=== PATIENT | male | born 1990 | race Caucasian/White ===

== ENCOUNTER 2016-10-17 06:43 | Emergency (ER) | payer SELFPAY ==
[2016-10-17] MEDS ORDERED: Ondansetron INJ* 2 MG/ML VIAL IV ONE (07:37)
[2016-10-17] MEDS ORDERED: Morphine INJ* 4 MG/ML 1 ML SYRINGE IV ONE ×2 (07:37→11:12)
[2016-10-17] MEDS ORDERED: Ketorolac INJ* 30 MG/ML 1 ML VIAL IV ONE (07:37)
[2016-10-17] MEDS ORDERED: NS 0.9% 1000 ML* 1,000 ML IV SCH (07:45)
--- NOTE | 2016-10-17 07:59 | RAD ---
HISTORY: Syncope COMPARISONS: June 27, 2006 VIEWS:1: Single frontal portable view of the chest at 7:45 AM FINDINGS: LINES AND TUBES: None. CARDIOMEDIASTINAL SILHOUETTE: The cardiomediastinal silhouette is normal for portable technique. PLEURA: The costophrenic angles are sharp. No pleural abnormalities are noted. LUNG PARENCHYMA: The lungs are clear. ABDOMEN: The upper abdomen is clear. There is no subphrenic gas. BONES AND SOFT TISSUES: No bone or soft tissue abnormalities are noted. IMPRESSION: NO ACTIVE CARDIOPULMONARY DISEASE.
[2016-10-17 08:00] LABS: Urine Bilirubin Negative (Negative); Urine Glucose Negative (Negative); Urine Nitrite Negative (Negative)
[2016-10-17 08:22] LABS: Hematocrit 44 % (42-52); Hemoglobin 14.9 g/dl (14.0-18.0); Mean Corpuscular HGB Conc 34 g/dl (31-36); Mean Corpuscular Hemoglobin 35 pg (27-31); Mean Corpuscular Volume 101 fL (80-94); Mean Platelet Volume 9 um3 (7.4-10.4); Red Blood Count 4.32 10^6/ul (4.0-5.4); Red Cell Distribution Width 14 % (10.5-15); White Blood Count 8.9 10^3/ul (3.5-10.8)
[2016-10-17 08:38] LABS: ALT 15 U/L (7-52); AST 17 U/L (13-39); Albumin 4.2 g/dL (3.2-5.2); Alkaline Phosphatase 63 U/L (34-104); Anion Gap 5 mmol/L (2-11); BUN/Creatinine Ratio 19.4 (8-20); Blood Urea Nitrogen 14 mg/dL (6-24); C Reactive Protein < 1.00 mg/L (< 5.00); CO2 Carbon Dioxide 27 mmol/L (22-32); Calcium 8.9 mg/dL (8.6-10.3); Chloride 106 mmol/L (101-111); Creatine Kinase 107 U/L (10-223); EGFR African American 167.2 (>60); Globulin 2.2 g/dL (2-4); Glucose 108 mg/dL (70-100); Lipase 25 U/L (11.0-82.0); Potassium 4.2 mmol/L (3.5-5.0); Sodium 138 mmol/L (133-145); Total Protein 6.4 g/dL (6.4-8.9)
[2016-10-17 09:10] LABS: TSH (Thyroid Stimulating Horm) 2.42 mcIU/mL (0.34-5.60)
--- NOTE | 2016-10-17 10:37 | RAD ---
HISTORY: MRI clearance. COMPARISON: None. FINDINGS: Frontal and lateral views of the orbits. There is no radiopaque foreign body attributable to the orbits. The orbital rims are intact. The sinuses are clear. The zygomatic arches are normal. IMPRESSION: No radiopaque foreign body attributable to the orbits.
[2016-10-17 10:48] VITALS: BP 124/76
--- NOTE | 2016-10-17 11:21 | RAD ---
HISTORY: Low back pain, right leg weakness COMPARISONS: None TECHNIQUE: The following sequences were obtained of the lumbar spine: Sagittal and axial T1- and T2-weighted images, coronal T2-weighted images, and sagittal STIR images. FINDINGS: There is transitional last lumbar type vertebral body which will be labeled S1 for the purposes of counting. SPINAL CORD, CONUS, AND CAUDA EQUINA: The visualized spinal cord, conus, and cauda equina are normal in caliber, position, and signal intensity. ALIGNMENT: The alignment is normal. VERTEBRAL BODIES: The bones are normal in signal intensity. There is partial obliteration of the S1 vertebral body JOINTS: Unremarkable MUSCULATURE: Unremarkable INTERVERTEBRAL DISCS: There is loss of intervertebral disc height and T2 signal at L5-S1 AXIAL IMAGES: L3-L4: There is no disc herniation, spinal stenosis, or neuroforaminal narrowing. L4-L5: There is no disc herniation, spinal stenosis, or neuroforaminal narrowing. L5-S1: There is a right lateral recess inferior disc extrusion measuring 1.1 cm in depth and 1.7 cm in the CC dimension. This abuts and displaces the descending nerve root on the right. There is no significant neural foraminal narrowing or central canal stenosis SOFT TISSUES: The visualized soft tissues of the abdomen are unremarkable. OTHER: None. IMPRESSION: 1. TRANSITIONAL ANATOMY, WITH THE COUNTING SCHEME DESCRIBED ABOVE. 2. RIGHT LATERAL RECESS DISC EXTRUSION AT L5-S1 WITH DISPLACEMENT OF THE DESCENDING NERVE ROOT
[2016-10-17] MEDS ORDERED: HYDROcodone/ACETAMIN 5-325 MG* 1 TAB PO ONE (13:03)
[2016-10-17] MEDS ORDERED: methylPREDNISolone 125 MG* 2 ML VIAL IV ONE (13:03)
--- NOTE | 2016-10-17 13:19 | ED ---
Cj Bassett Salem, scribed for Portillo Sheppard MD on 10/17/16 at 0729 . Back Pain - HPI Summary HPI Summary: Patient is a 26 y/o M who presents to the ED with right hip/lower back pain for the past few weeks. He states that he saw his chiropractor 7-8 times since onset (twice this week) and pain has moved since seeing the chiropractor. While it began in his mid-back and it is now localized over the right hip area and RLE. He reports numbness in right foot, and weakness, shaking, and pain in RLE. He also reports syncope because of severe pain this morning and yesterday morning. Pt denies changes in BM or urination, although he states that straining to make a BM aggravates pain and that pain sensation makes him feel like he always has to go. He reports no change in LLE. PMHx of chronic back pain. He states that the beginning of his symptoms is similar to previous episodes, but pain level is not. Pt has been taking Hydrocodone that he had prescribed for molar removal 1-2 months ago. - History of Current Complaint Chief Complaint: EDSyncope Stated Complaint: LOWER BACK PAIN/RIGHT LEG PAIN Time Seen by Provider: 10/17/16 07:28 Hx Obtained From: Patient Onset/Duration: Gradual Onset, Lasting Weeks, Still Present Onset/Duration: Started Weeks Ago, Atraumatic, Still Present Timing: Constant Back Pain Location: Is Discrete @ - Right hip. Severity Initially: Moderate Severity Currently: Moderate Pain Intensity: 8 Pain Scale Used: 0-10 Numeric Character: Sharp Aggravating Symptom(s): Movement, Lifting - Lifting leg. Alleviating Symptom(s): Rest Associated Signs And Symptoms: Positive: Weakness, Numbness - Allergies/Home Medications Allergies/Adverse Reactions: Allergies Allergy/AdvReac Type Severity Reaction Status Date / Time No Known Allergies Allergy Verified 01/16/15 17:49 PMH/Surg Hx/FS Hx/Imm Hx Musculoskeletal History: Reports: Hx Back Problems - Surgical History Surgery Procedure, Year, and Place: None. Infectious Disease History: Reports: Hx of Known/Suspected MRSA - SKIN INFECTION Denies: Traveled Outside the [place] in Last 30 Days - Family History Known Family History: Positive: Diabetes, Other - [place]. - Social History Alcohol Use: Occasionally Substance Use Type: Reports: None Smoking Status (MU): Current Every Day Smoker Type: Cigarettes Amount Used/How Often: 1/ PPD Review of Systems Positive: no symptoms reported, other Positive: Other - Back pain. Neurological: Other - Shaking of RLE. Positive: Weakness - RLE. , Numbness - Right foot. , Syncope All Other Systems Reviewed And Are Negative: Yes Physical Exam Triage Information Reviewed: Yes Vital Signs On Initial Exam: Initial Vitals Temp Pulse Resp BP Pulse Ox 98.3 F 90 18 156/84 100 10/17/16 06:46 10/17/16 06:46 10/17/16 06:46 10/17/16 06:46 10/17/16 06:46 Vital Signs Reviewed: Yes Appearance: Positive: Well-Appearing, Pain Distress - Mild. Skin: Positive: Warm, Skin Color Reflects Adequate Perfusion, Dry Head/Face: Positive: Normal Head/Face Inspection Eyes: Positive: EOMI, ANDREZ Neck: Positive: Supple, Nontender Respiratory/Lung Sounds: Positive: Clear to Auscultation, Breath Sounds Present Cardiovascular: Positive: RRR Abdomen Description: Positive: Nontender, Soft Musculoskeletal: Positive: Other - Lying on back. Tenderness to low back and to right of L4 and L5. Pain with ROM of bilat lower extremities, far worse on right. Reports weakness with hip flexion. Neurological: Positive: Normal, Sensory/Motor Intact, Alert, Oriented to Person Place, Time, Other - No sensation deficit. Psychiatric: Positive: Affect/Mood Appropriate - [place] Coma Scale Coma Scale Total: 15 Diagnostics - Vital Signs Vital Signs Temp Pulse Resp BP Pulse Ox 10/17/16 07:07 98.3 F 90 18 156/84 100 10/17/16 06:46 98.3 F 90 18 156/84 100 - Laboratory Lab Results: Lab Results 10/17/16 10/17/16 10/17/16 Range/Units 07:43 08:10 08:10 WBC 8.9 (3.5-10.8) 10^3/ul RBC 4.32 (4.0-5.4) 10^6/ul Hgb 14.9 (14.0-18.0) g/dl Hct 44 (42-52) % MCV 101 H (80-94) fL MCH 35 H (27-31) pg MCHC 34 (31-36) g/dl RDW 14 (10.5-15) % Plt Count 163 (150-450) 10^3/ul MPV 9 (7.4-10.4) um3 Neut % (Auto) 67.9 (38-83) % Lymph % (Auto) 21.2 L (25-47) % [place] % (Auto) 7.6 (1-9) % Eos % (Auto) 2.3 (0-6) % Baso % (Auto) 1.0 (0-2) % Absolute Neuts (auto) 6.1 (1.5-7.7) 10^3/ul Absolute Lymphs (auto) 1.9 (1.0-4.8) 10^3/ul Absolute Monos (auto) 0.7 (0-0.8) 10^3/ul Absolute Eos (auto) 0.2 (0-0.6) 10^3/ul Absolute Basos (auto) 0.1 (0-0.2) 10^3/ul Absolute Nucleated RBC 0.01 10^3/ul Nucleated RBC % 0.1 INR (Anticoag Therapy) 0.81 L (0.89-1.11) APTT 30.5 (26.0-36.3) seconds Sodium (133-145) mmol/L Potassium (3.5-5.0) mmol/L Chloride (101-111) mmol/L Carbon Dioxide (22-32) mmol/L Anion Gap (2-11) mmol/L BUN (6-24) mg/dL Creatinine (0.67-1.17) mg/dL Est GFR ( Amer) (>60) Est GFR (Non-Af Amer) (>60) BUN/Creatinine Ratio (8-20) Glucose (70-100) mg/dL Lactic Acid (0.5-2.0) mmol/L Calcium (8.6-10.3) mg/dL Magnesium (1.9-2.7) mg/dL Total Bilirubin (0.2-1.0) mg/dL AST (13-39) U/L ALT (7-52) U/L Alkaline Phosphatase (34-104) U/L Total Creatine Kinase (10-223) U/L Troponin I (<0.04) ng/mL C-Reactive Protein (< 5.00) mg/L Total Protein (6.4-8.9) g/dL Albumin (3.2-5.2) g/dL Globulin (2-4) g/dL Albumin/Globulin Ratio (1-3) Lipase (11.0-82.0) U/L TSH (0.34-5.60) mcIU/mL Urine Color Yellow Urine Appearance Cloudy Urine pH 7.0 (5-9) Ur Specific [place] 1.011 (1.010-1.030) Urine Protein Negative (Negative) Urine Ketones Negative (Negative) Urine Blood Negative (Negative) Urine Nitrate Negative (Negative) Urine Bilirubin Negative (Negative) Urine Urobilinogen Negative (Negative) Ur Leukocyte Esterase Negative (Negative) Urine Glucose Negative (Negative) 10/17/16 10/17/16 Range/Units 08:10 08:10 WBC (3.5-10.8) 10^3/ul RBC (4.0-5.4) 10^6/ul Hgb (14.0-18.0) g/dl Hct (42-52) % MCV (80-94) fL MCH (27-31) pg MCHC (31-36) g/dl RDW (10.5-15) % Plt Count (150-450) 10^3/ul MPV (7.4-10.4) um3 Neut % (Auto) (38-83) % Lymph % (Auto) (25-47) % [place] % (Auto) (1-9) % Eos % (Auto) (0-6) % Baso % (Auto) (0-2) % Absolute Neuts (auto) (1.5-7.7) 10^3/ul Absolute Lymphs (auto) (1.0-4.8) 10^3/ul Absolute Monos (auto) (0-0.8) 10^3/ul Absolute Eos (auto) (0-0.6) 10^3/ul Absolute Basos (auto) (0-0.2) 10^3/ul Absolute Nucleated RBC 10^3/ul Nucleated RBC % INR (Anticoag Therapy) (0.89-1.11) APTT (26.0-36.3) seconds Sodium 138 (133-145) mmol/L Potassium 4.2 (3.5-5.0) mmol/L Chloride 106 (101-111) mmol/L Carbon Dioxide 27 (22-32) mmol/L Anion Gap 5 (2-11) mmol/L BUN 14 (6-24) mg/dL Creatinine 0.72 (0.67-1.17) mg/dL Est GFR ( Amer) 167.2 (>60) Est GFR (Non-Af Amer) 130.0 (>60) BUN/Creatinine Ratio 19.4 (8-20) Glucose 108 H (70-100) mg/dL Lactic Acid 0.8 (0.5-2.0) mmol/L Calcium 8.9 (8.6-10.3) mg/dL Magnesium 2.0 (1.9-2.7) mg/dL Total Bilirubin 0.30 (0.2-1.0) mg/dL AST 17 (13-39) U/L ALT 15 (7-52) U/L Alkaline Phosphatase 63 (34-104) U/L Total Creatine Kinase 107 (10-223) U/L Troponin I 0.00 (<0.04) ng/mL C-Reactive Protein < 1.00 (< 5.00) mg/L Total Protein 6.4 (6.4-8.9) g/dL Albumin 4.2 (3.2-5.2) g/dL Globulin 2.2 (2-4) g/dL Albumin/Globulin Ratio 1.9 (1-3) Lipase 25 (11.0-82.0) U/L TSH 2.42 (0.34-5.60) mcIU/mL Urine Color Urine Appearance Urine pH (5-9) Ur Specific [place] (1.010-1.030) Urine Protein (Negative) Urine Ketones (Negative) Urine Blood (Negative) Urine Nitrate (Negative) Urine Bilirubin (Negative) Urine Urobilinogen (Negative) Ur Leukocyte Esterase (Negative) Urine Glucose (Negative) Result Diagrams: 10/17/16 08:10 10/17/16 08:10 Diagnostic Studies Comment: Trop: 0.00 Lab Statement: Any lab studies that have been ordered have been reviewed, and results considered in the medical decision making process. - Radiology CXR Radiology Interpretation Completed By: Radiologist - IMPRESSION: NO ACTIVE CARDIOPULMONARY DISEASE. ORBIT XR Radiology Interpretation Completed By: Radiologist - IMPRESSION: No radiopaque foreign body attributable to the orbits. - EKG 0654 EKG Interpretation: NSR @ 90 bpm. Early repolarization. No ectopy. - Additional Comments Diagnostic Additional Comments: MRI Lumbar spine: IMPRESSION: 1. TRANSITIONAL ANATOMY, WITH THE COUNTING SCHEME DESCRIBED ABOVE. 2. RIGHT LATERAL RECESS DISC EXTRUSION AT L5-S1 WITH DISPLACEMENT OF THE DESCENDING NERVE ROOT Re-Evaluation - Re-Evaluation First Eval Re-Evaluation Time: 11:51 Comment: Reviewed labs and imaging with pt. Second Eval Re-Evaluation Time: 12:58 Comment: Informed pt of consult with Dr. Johnson. Back Pain Course/Dx - Course Course Of Treatment: NO CRITICAL CARE TIME. DISCUSSED RESULTS WITH PATIENT/ AND DR JOHNSON, NEUROSURGERY. DR JOHNSON RECOMMENDED A MEDROL DOSE JAMEY/ PAIN MEDS AND OUT PATIENT FOLLOW UP. DISCHARGE HOME STABLE. - Diagnoses Provider Diagnoses: Lumbar disc herniation with radiculopathy, Syncope - Provider Notifications Discussed Care Of Patient With: Oscar Johnson Time Discussed With Above Provider: 12:43 - Discussed case. Recommended steroids and that pt follow up with him. Discharge - Discharge Plan Condition: Stable Disposition: HOME Prescriptions: Cyclobenzaprine TAB* [Flexeril 10 MG TAB*] 10 mg PO TID PRN #15 tab PRN Reason: Pain HYDROcodone/ACETAMIN 5-325 MG* [[place] 5-325 TAB*] 1 tab PO Q4H PRN #30 tab MDD 6 PRN Reason: Pain Methylprednisolone [Medrol Dosepak 4 MG*] 4 mg PO .SEE JAMEY INSTRUCTION #1 jamey Patient Education Materials: Lumbar Disc Herniation (ED), Syncope (ED), Lumbar Radiculopathy (ED) Referrals: Oscar Johnson MD [Medical Doctor] - No Primary Care Phys,NOPCP [Primary Care Provider] - Additional Instructions: FOLLOW UP WITH YOUR PRIMARY CARE DOCTOR AND NEUROSURGERY, DR JOHNSON.. RETURN TO THE EMERGENCY DEPARTMENT FOR ANY WORSENING OF YOUR CONDITION OR QUESTIONS OR CONCERNS. The documentation as recorded by the Cj hinson Salem accurately reflects the service I personally performed and the decisions made by me, Portillo Sheppard MD.
== END 2016-10-17 13:28 | disposition home or self-care (01) ==
LOC: ED 06:43
DX: M54.16 Radiculopathy, lumbar region (principal); R55 Syncope and collapse; M54.5 Low back pain; R53.1 Weakness; F17.210 Nicotine dependence, cigarettes, uncomplicated
CPT/HCPCS: 36415; 70030; 71010; 72148; 80053; 81003; 82550; 83605; 83690; 83735; 84443; 84484; 85025; 85610; 85730; 86140; 93005; 96374; 96375; 99283; J1885; J2270; J2405; J2930

== ENCOUNTER 2016-11-12 06:06 | Observation (INO) | payer OTHER ==
[~2016-11-12 06:06] MED LIST: Buffered Lidocaine 0.9% SYRIN* 5 ML/SYR SYRINGE INTRADERM ONE; Buffered Lidocaine 0.9% SYRIN* 5 ML/SYR SYRINGE ONE; Famotidine IV* 10 MG/ML 2 ML (20 mg) IV ONE; Famotidine IV* 10 MG/ML 2 ML (20 mg) ONE; Morphine INJ* 2 MG/ML 1 ML CARPUJECT IV PRN; PROCHLORPERAZINE INJ 5 MG/ML 2 ML VIAL IV PRN; Scopolamine 1.5 mg* PATCH TRANSDERM PRN; ceFAZolin 2 GM PREMIX (*) 2 GM/50 ML BAG IVPB ONE; oxyCODONE/Acetamin 5/325 MG* TAB PO PRN
[2016-11-12] MEDS ORDERED: Bacitracin IV* 50,000 UNITS INJ ONE (07:19)
[2016-11-12] MEDS ORDERED: Thrombin 5,000 UNITS* 1 APPLIC KIT - topical use - TOPICAL ONE (07:19)
[2016-11-12] MEDS ORDERED: Lidocaine 1.5% EPI 1:200,000* 30 ML SDV ONE (07:23)
[2016-11-12] MEDS ORDERED: Atracurium* 10 MG/ML 10 ML VIAL ONE (07:31)
[2016-11-12] MEDS ORDERED: fentaNYL* 50 MCG/ML 5 ML VIAL (250 MCG VIAL) ONE (07:31)
[2016-11-12] MEDS ORDERED: Midazolam* 1 MG/ML 5 ML VIAL (5 MG) ONE (07:32)
[2016-11-12] MEDS ORDERED: KETAMINE HCL* 50 MG/ML 10 ML VIAL ONE (07:32)
[2016-11-12] MEDS ORDERED: PROCHLORPERAZINE INJ 5 MG/ML 2 ML VIAL ONE (08:02)
[2016-11-12] MEDS ORDERED: Lidocaine 2% PF * 5 ML VIAL ONE (08:02)
[2016-11-12] MEDS ORDERED: Neostigmine Methylsulfate* 2 MG/2 ML SYRINGE ONE (08:02)
[2016-11-12] MEDS ORDERED: Propofol* 10 MG/ML 20 ML BTL IV PUSH ONE (08:02)
[2016-11-12] MEDS ORDERED: Ondansetron INJ* 2 MG/ML VIAL ONE (08:02)
[2016-11-12] MEDS ORDERED: Dexamethasone IV* 4 MG/ML 1 ML (4 MG) ONE (08:02)
[2016-11-12] MEDS ORDERED: Glycopyrrolate IV* 0.2 MG/ML 1 ML VIAL ONE (08:02)
[2016-11-12] MEDS ORDERED: Morphine INJ* 10 MG/ML 1 ML CARPUJECT ONE (08:31)
[2016-11-12] MEDS ORDERED: HYDROcodone/ACETAMIN 5-325 MG* 1 TAB PO PRN (09:07)
[2016-11-12] MEDS ORDERED: Ondansetron INJ* 2 MG/ML VIAL IV PRN (09:07)
[2016-11-12] MEDS ORDERED: Acetaminophen TAB* 325 MG PO PRN (09:07)
[2016-11-12] MEDS ORDERED: Mouth Piece, Nicotine* 1 EACH CARTRIDGE INH PRN (09:13)
[2016-11-12] MEDS ORDERED: Nicotine Inhaler* 10 MG AMP INH PRN (09:13)
[2016-11-12] MEDS: fentaNYL* 50 MCG/ML 2 ML VIAL (100 MCG VIAL) IV PRN ×2 (09:44→09:47)
[2016-11-12] MEDS ORDERED: fentaNYL* 50 MCG/ML 2 ML VIAL (100 MCG VIAL) ONE (09:44)
--- NOTE | 2016-11-12 10:27 | RAD ---
Indication: Lumbar discectomy at L5-S1 Single lateral view of the lumbar spine is reviewed. The L5-S1 disc space is localized for discectomy. IMPRESSION: Localization of the L5-S1 disc interspace.
[2016-11-12] MEDS ORDERED: HYDROcodone/ACETAMIN 5-325 MG* 1 TAB ONE (10:28)
[2016-11-12] MEDS ORDERED: Nicotine Inhaler* 10 MG AMP ONE (10:28)
[2016-11-12] MEDS ORDERED: Nicotine PATCH 21 MG/24 HR* PATCH ONE (10:28)
[2016-11-12] MEDS ORDERED: Mouth Piece, Nicotine* 1 EACH CARTRIDGE ONE (10:28)
[2016-11-12] MEDS ORDERED: Nicotine PATCH 21 MG/24 HR* PATCH TRANSDERM SCH (11:00)
[2016-11-12 12:24] VITALS: BP 123/71
--- NOTE | 2016-11-12 16:01 | PN ---
Progress Note - Progress Note Date of Service: 11/12/16 SOAP: Subjective: [S/p lumbar discectomy L5-S1 right, POD #0. RLE pain resolved. Complains of incisional low back pain, controlled with PO pain medications. Ambulating independently. No new numbness, tingling or weakness in bilateral lower extremities. No headache.] Objective: [ Vital Signs: Temp Pulse Resp BP Pulse Ox 98.2 F 74 18 123/71 98 11/12/16 11:28 11/12/16 11:28 11/12/16 14:19 11/12/16 11:28 11/12/16 11:28 General: Alert and oriented. No distress. Neuro: Motor and sensory intact. Extremities: Full ROM. ] Assessment: [Satisfactory post-op course. Pain well controlled. He would like to go home today.] Plan: [1. Discharge home today. 2. Discharge instructions discussed with the patient. ]
[2016-11-13] MEDS ORDERED: Nicotine Patch Removal NOTE PATCH OFF SCH (21:00)
[2016-11-15] MEDS ORDERED: Scopolomine PATCH Remove* 1 NOTE MISC PATCH OFF ONE (05:52)
--- NOTE | 2016-11-29 13:20 | DS ---
DATE OF ADMISSION: 11/12/2016. DATE OF DISCHARGE: 11/12/2016. ATTENDING PHYSICIAN: Dr. Oscar Donaldson * (dictated by SUZANNE Fletcher). DISCHARGE DIAGNOSIS: Herniated nucleus pulposus L5-S1 on the right. SPECIAL PROCEDURE: Lumbar diskectomy L5-S1 on the right. HOSPITAL COURSE: This 26-year-old male was seen in the office with a right sided lumbar radiculopathy consistent with MRI finding of a herniated disk at L5 -S1 on the right. He had failed to improve with conservative treatment and admitted at this time for elective surgical therapy. On the date of admission, he was taken to surgery where under general anesthesia a lumbar diskectomy at L5 -S1 on the right operation was carried out. Postoperatively, his preoperative right lower extremity pain has improved. He is ambulating independently and pain is well-controlled with oral pain medications. He is eating, drinking and voiding without difficulty. He was discharged home to the care of his family on the same day of surgery. DISCHARGE INSTRUCTIONS: Wound care and activity level were discussed with the patient. He will be seen in the office in approximately seven to ten days for follow-up and staple removal. DISCHARGE MEDICATIONS: None. SUZANNE FLETCHER [id number]/[facility] #: [id number] MTDD
--- NOTE | 2016-12-20 05:19 | OP ---
DATE OF OPERATION: 11/12/16 - ROOM #334 DATE OF : 86 SURGEON: Oscar Donaldson MD AUTOMATED WEAVER: SUZANNE Dudley ANESTHESIOLOGIST: José Miguel Aguirre MD ANESTHESIA: General. PRE-OP DIAGNOSIS: Herniated nucleus pulposus, L5-S1 on the right. POST-OP DIAGNOSIS: Herniated nucleus pulposus, L5-S1 on the right. OPERATIVE PROCEDURE: Lumbar discectomy, L5-S1 on the right with microdissection. DESCRIPTION OF PROCEDURE: After satisfactory general anesthesia was obtained, the patient was placed on the operating room table in a prone position with the chest supported on the Alex frame and the back slightly flexed. The lumbar region was then clipped, prepped and draped in a sterile manner for lumbar laminectomy. A skin incision outlined from L5 to the sacrum. This incision was infiltrated with 1% Xylocaine with epinephrine after which it was turned down sharply to the level of the lumbar fascia. The fascia was divided along the spinous processes of L5 and S1, and the paraspinal musculature was stripped away from these posterior elements using the periosteal elevator and monopolar cautery. An intraoperative x-ray was obtained verifying proper interspace localization, after which a partial leonard-laminectomy was carried out at this level by removing the inferior aspect of the L5 lamina and medial aspect of the facet complex utilizing combination of the Midas Edward drill and Kerrison rongeurs. This was carried superiorly until attachment of the ligamentum flavum was taken down. Ligamentum flavum was then removed and generous foraminotomy done over the S1 nerve root. At this point of the procedure, the operating microscope was brought into the field and the remainder of the procedure was done under microscopic visualization. Utilizing microdissection, epidural venous structures were coagulated and divided. Projecting beneath the S1 nerve root was noted to be a herniation of disk material. An opening was made into the posterior longitudinal ligament and multiple fragments of disc material were removed from beneath the nerve root. The disk space itself was then cleared of any loose disc material using pituitary forceps and curettes. At the conclusion of the decompression, the S1 nerve root was noted to be free in its course. After assuring adequate hemostasis, the wound was thoroughly irrigated, after which a piece of Gelfoam was placed over the laminectomy defect. The fascia was then reapproximated with 0 Vicryl suture. The subcutaneous tissue was closed with 3-0 Vicryl suture and the skin closed with skin clips. The estimated blood loss was less than 50 cc and the final sponge, padding, and needle counts were correct. The patient was taken to the recovery room, extubated, and in stable condition. [id number]/[facility] #: [id number] MTDD
== END 2016-11-12 16:25 | disposition home or self-care (01) ==
LOC: OR 06:06 → SSU 09:07
PROVIDERS: ADMIT Neurological Surgery; ATTEND Neurological Surgery
PROC: 00NY0ZZ Release Lumbar Spinal Cord, Open Approach (ICD-10-PCS; 2016-11-12)
PROC: 0SB20ZZ Excision of Lumbar Vertebral Disc, Open Approach (ICD-10-PCS; principal; 2016-11-12 07:45)
DX: M51.16 Intervertebral disc disorders with radiculopathy, lumbar region (principal); M51.26 Other intervertebral disc displacement, lumbar region; F17.210 Nicotine dependence, cigarettes, uncomplicated
CPT/HCPCS: 72100; 88304; 96374; A9270-GY; G0378; J0690; J0780; J1100; J2250; J2270; J2405; J2704; J3010

== ENCOUNTER 2017-05-04 11:23 | Emergency (ER) | payer OTHER ==
--- NOTE | 2017-05-04 12:10 | ED ---
Back Pain - HPI Summary HPI Summary: Patient presents to the ED with CC of low back pain which is non-radiating but causes numbness into the L foot. Dr. Donaldson performed L5-S1 discectomy in October (7 months ago) and patient has been having persistent back pain since that time, although the pain is intermittent and not everyday. He has had mild relief of symptoms since the surgery, but since he continues to have pain - concerned with new or worsening injury. He has been taking Zaheer back and hot showers without relief of pain. Denies any new or re-injury. Denies fevers, sweats or chills. Denies B/B dysfunction. - History of Current Complaint Chief Complaint: EDBackInjuryPain Stated Complaint: BACK PAIN Time Seen by Provider: 05/04/17 11:33 Hx Obtained From: Patient Onset/Duration: Sudden Onset Onset/Duration: Started Hours Ago Timing: Constant Back Pain Location: Is Discrete @ Severity Initially: Moderate Severity Currently: Moderate Pain Intensity: 5 Pain Scale Used: 0-10 Numeric Character: Aching Alleviating Symptom(s): Rest Associated Signs And Symptoms: Positive: Numbness, Tingling - Risk Factors AAA Risk Factors: Negative TAD Risk Factors: Negative Cauda Equina Risk Factors: Negative Epidural Abscess Risk Factors: Negative - Allergies/Home Medications Allergies/Adverse Reactions: Allergies Allergy/AdvReac Type Severity Reaction Status Date / Time No Known Allergies Allergy Verified 05/04/17 11:30 PMH/Surg Hx/FS Hx/Imm Hx Previously Healthy: Yes Cardiovascular History: Denies: Hx Pacemaker/ICD Musculoskeletal History: Reports: Hx Back Problems Sensory History: Denies: Hx Contacts or Glasses, Hx Hearing Aid Opthamlomology History: Denies: Hx Contacts or Glasses Psychiatric History: Denies: Hx Panic Disorder - Surgical History Surgery Procedure, Year, and Place: wisdom teeth June 2016 Hx Anesthesia Reactions: No - Immunization History Hx Pertussis Vaccination: No Immunizations Up to Date: Unable to Obtain/Confirm Infectious Disease History: No Infectious Disease History: Reports: Hx of Known/Suspected MRSA - SKIN INFECTION Denies: Traveled Outside the [place] in Last 30 Days - Family History Known Family History: Positive: Diabetes, Other - [place]. - Social History Occupation: Employed Full-time Lives: With Family Alcohol Use: None Alcohol Amount: 2-3 beer a day Hx Substance Use: No Substance Use Type: Reports: None Substance Use Comment - Amount & Last Used: hydrocodone, currently for back pain Hx Tobacco Use: Yes Smoking Status (MU): Light Every Day Tobacco Smoker Type: Cigarettes Amount Used/How Often: 6-10 cigg/day for past 7 years Review of Systems Constitutional: Negative Negative: Fever, Chills, Fatigue Eyes: Negative ENT: Negative Respiratory: Negative Genitourinary: Negative Positive: no symptoms reported, see HPI Positive: Arthralgia Skin: Negative Positive: Paresthesia, Numbness Psychological: Normal All Other Systems Reviewed And Are Negative: Yes Physical Exam Triage Information Reviewed: Yes Vital Signs On Initial Exam: Initial Vitals Temp Pulse Resp BP Pulse Ox 98.7 F 85 16 159/86 100 05/04/17 11:30 05/04/17 11:30 05/04/17 11:30 05/04/17 11:30 05/04/17 11:30 Vital Signs Reviewed: Yes Appearance: Positive: Well-Appearing, No Pain Distress, Well-Nourished Skin: Positive: Warm, Skin Color Reflects Adequate Perfusion Head/Face: Positive: Normal Head/Face Inspection Eyes: Positive: EOMI, ANDREZ, Conjunctiva Clear Neck: Positive: Supple, No Lymphadenopathy Respiratory/Lung Sounds: Positive: Clear to Auscultation, Breath Sounds Present Cardiovascular: Positive: RRR, Pulses are Symmetrical in both Upper and Lower Extremities Musculoskeletal: Positive: Normal, Strength/ROM Intact Neurological: Positive: Sensory/Motor Intact, Alert, Oriented to Person Place, Time, Speech Normal Psychiatric: Positive: Normal, Affect/Mood Appropriate AVPU Assessment: Alert - [place] Coma Scale Coma Scale Total: 15 Diagnostics - Vital Signs Vital Signs Temp Pulse Resp BP Pulse Ox 05/04/17 11:30 98.7 F 85 16 159/86 100 - Laboratory Lab Statement: Any lab studies that have been ordered have been reviewed, and results considered in the medical decision making process. Back Pain Course/Dx - Course Course Of Treatment: IMPRESSION: Postoperative changes. No fracture is identified. Patient is give pain control and baclofen. He will follow up with [facility]. Denies B/B dysfunction or other numbness or tingling aside from baseline. Contineus to have numbness in L foot - but this has been present and evlaluated since the surgery. - Diagnoses Provider Diagnoses: Chronic back pain greater than 3 months duration Discharge - Discharge Plan Condition: Stable Disposition: HOME Prescriptions: Baclofen TAB* [Lioresal TAB*] 10 mg PO TID #15 tab Hydrocodone-Acetaminophen [Hydrocodone/Acetaminophen 5-325 mg] 1 tab PO Q6H PRN #15 tab MDD 4 PRN Reason: Pain Patient Education Materials: Lumbar Radiculopathy (ED) Referrals: Oscar Donaldson MD [Medical Doctor] - No Primary Care Phys,NOPCP [Primary Care Provider] - Additional Instructions: Dx. Back pain Hydrocodone: Take up to four times daily for pain Flexeril: This medication is a muscle relaxant and can help relieve muscle spasms, muscle strain, or pain sensations. Flexeril can cause side effects that may impair your thinking or reactions. Be careful if you drive or do anything that requires you to be awake and alert. Avoid drinking alcohol, which can increase some of the side effects of Flexeril. Ibuprofen 600mg three times daily with meals for discomfort. Return to ED if symptoms worsen or fail to improve, notice worsening swelling, warmth or redness around the joint, develop fever, or pain is uncontrolled with OTC medications. Moist heat to the area for comfort. Warm showers or baths may improve symptoms. It is important to remain mobile as tolerated to prevent stiffening of the joints and delay healing. Follow up with your PCP. If symptoms remain for > 6 weeks, please seek special medical attention from an orthopedic physician.
--- NOTE | 2017-05-04 13:54 | RAD ---
Indication: Back pain. CT of the lumbar spine was obtained in the axial plane. Sagittal and coronal reconstructed images were obtained. The vertebral bodies appear normal in height. Normal bone marrow signal is noted. At L5-S1 there is degenerative disc disease noted. Broad-based protrusion is noted. No central or foraminal stenosis is identified. At L4-L5 no disc protrusion is noted. No central or foraminal stenosis is noted. L3-L4 no disc protrusion is noted. No central or foraminal stenosis is noted. At L1-L2 and T12-L1 disc space is normal. Minimal sclerosis is noted in the inferior endplate of L3. Pedicles and intervertebral foramen appear patent. Laminotomy defect is noted in the right L5 lamina. IMPRESSION: Postoperative changes. No fracture is identified.
[2017-05-04 14:54] VITALS: BP 137/79
== END 2017-05-04 14:52 | disposition home or self-care (01) ==
LOC: ED 11:23
DX: G89.29 Other chronic pain (principal); M51.26 Other intervertebral disc displacement, lumbar region; M51.36 Other intervertebral disc degeneration, lumbar region; F17.210 Nicotine dependence, cigarettes, uncomplicated
CPT/HCPCS: 72131; 99282

== ENCOUNTER 2017-10-04 13:01 | Emergency (ER) | payer OTHER ==
[2017-10-04] MEDS ORDERED: NS 0.9% 1000 ML* 1,000 ML IV ONE (13:22)
[2017-10-04] MEDS ORDERED: diPHENhydraMINE IV* 50 MG/ML 1 ml VIAL (BENADRYL) IV ONE (13:22)
[2017-10-04] MEDS ORDERED: Metoclopramide IV* 5 MG/ML 2 ML VIAL IV ONE (13:22)
[2017-10-04] MEDS ORDERED: Ketorolac INJ* 30 MG/ML 1 ML VIAL IV PUSH ONE (14:28)
[2017-10-04 14:33] LABS: ABS Basophils 0.1 10^3/ul (0-0.2); ABS Eosinophils 0.2 10^3/ul (0-0.6); ABS Monocytes 0.6 10^3/ul (0-0.8); ABS Neutrophils 5.3 10^3/ul (1.5-7.7); ABS Nucleated RBC 0 10^3/ul; Hematocrit 46 % (42-52); Hemoglobin 15.8 g/dl (14.0-18.0); Lymphocyte % 24.2 % (25-47); Mean Corpuscular HGB Conc 34 g/dl (31-36); Mean Corpuscular Hemoglobin 34 pg (27-31); Mean Corpuscular Volume 100 fL (80-94); Mean Platelet Volume 8.4 um3 (7.4-10.4); Nucleated Red Blood Cells % 0; Platelet Count 197 10^3/ul (150-450); Red Blood Count 4.61 10^6/ul (4.00-5.40); Red Cell Distribution Width 13 % (10.5-15); White Blood Count 8.1 10^3/ul (3.5-10.8)
[2017-10-04 14:43] LABS: INR 0.79 (0.77-1.02)
[2017-10-04 16:40] VITALS: BP 129/82
--- NOTE | 2017-10-04 18:25 | ED ---
Juan R Bassett Jade, scribed for Gagandeep Moore MD on 10/04/17 at 1428 . Headache - HPI Summary HPI Summary: Pt is a 27 y/o male who presents to the ED c/o headache. Pt had a CT myelogram yesterday for his herniated disc, and denies a headache before this procedure. The procedure took longer than normal, so there is potential for an issue with the procedure. He states the headache started last night, and is described as throbbing in the front and back of his head, and rated 8/10 in intensity. The headache is worse when he stands up, and is better when he lies down. Pt also complains of blurry vision and low-grade fever. He denies any difficulty swallowing, SOB, or N/V. Today he had some caffeine, but usually doesnt drink that much. Pt denies PMHx migraines, kidney issues, or blood clot issues. SHx smoking and drinking. - History Of Current Complaint Chief Complaint: EDHeadache Stated Complaint: HEADACHE Time Seen by Provider: 10/04/17 14:14 Hx Obtained From: Patient Onset/Duration: Gradual Onset, Started days ago - Last night Currently Pain Is: Severe - 8/10 Character: Throbbing Location of Headache: Other: - Front and back of head Aggravating Factor: Position Change - standing up Allevating Factors: Position Change - laying down - Allergies/Home Medications Allergies/Adverse Reactions: Allergies Allergy/AdvReac Type Severity Reaction Status Date / Time No Known Allergies Allergy Verified 10/04/17 13:19 PMH/Surg Hx/FS Hx/Imm Hx Cardiovascular History: Denies: Hx Pacemaker/ICD Musculoskeletal History: Reports: Hx Back Problems - Herniated disc Sensory History: Denies: Hx Contacts or Glasses, Hx Hearing Aid Opthamlomology History: Denies: Hx Contacts or Glasses Psychiatric History: Denies: Hx Panic Disorder - Surgical History Surgery Procedure, Year, and Place: wisdom teeth June 2016 Hx Anesthesia Reactions: No Infectious Disease History: Yes Infectious Disease History: Reports: Hx of Known/Suspected MRSA - SKIN INFECTION Denies: Traveled Outside the [place] in Last 30 Days - Family History Known Family History: Positive: Diabetes, Other - CA. NEGATIVE: blood clot issues, aneurysm - Social History Alcohol Use: Daily Alcohol Amount: 2-3 beer a day Hx Substance Use: No Substance Use Type: Reports: Prescribed Substance Use Comment - Amount & Last Used: hydrocodone, currently for back pain Hx Tobacco Use: Yes Smoking Status (MU): Light Every Day Tobacco Smoker Type: Cigarettes Amount Used/How Often: 6-10 cigg/day for past 7 years Review of Systems Positive: Fever - Low-grade Positive: Blurred Vision ENT: Negative - NEGATIVE: difficulty swallowing Negative: Shortness Of Breath Negative: Vomiting, Nausea Positive: Headache All Other Systems Reviewed And Are Negative: Yes Physical Exam - Summary Physical Exam Summary: Appearance: Well appearing, no pain distress Skin: warm, dry, reflects adequate perfusion Head/face: normal Eyes: EOMI, ANDREZ ENT: normal Neck: supple, non-tender Respiratory: CTA, breath sounds present Cardiovascular: RRR, pulses symmetrical Abdomen: non-tender, soft Bowel Sounds: present Musculoskeletal: normal, strength/ROM intact Neuro: normal, sensory motor intact, A&Ox3. Cranial nerves normal. Headache symptoms worsen when he stands up. Triage Information Reviewed: Yes Vital Signs On Initial Exam: Initial Vitals Temp Pulse Resp BP Pulse Ox 98.3 F 83 18 152/93 99 10/04/17 13:14 10/04/17 13:14 10/04/17 13:14 10/04/17 13:14 10/04/17 13:14 Vital Signs Reviewed: Yes Diagnostics - Vital Signs Vital Signs Temp Pulse Resp BP Pulse Ox 10/04/17 13:14 98.3 F 83 18 152/93 99 - Laboratory Lab Results: Lab Results 10/04/17 10/04/17 10/04/17 Range/Units 14:27 14:27 14:27 WBC 8.1 (3.5-10.8) 10^3/ul RBC 4.61 (4.00-5.40) 10^6/ul Hgb 15.8 (14.0-18.0) g/dl Hct 46 (42-52) % MCV 100 H (80-94) fL MCH 34 H (27-31) pg MCHC 34 (31-36) g/dl RDW 13 (10.5-15) % Plt Count 197 (150-450) 10^3/ul MPV 8.4 (7.4-10.4) um3 Neut % (Auto) 65.2 (38-83) % Lymph % (Auto) 24.2 L (25-47) % [place] % (Auto) 7.6 H (0-7) % Eos % (Auto) 2.0 (0-6) % Baso % (Auto) 1.0 (0-2) % Absolute Neuts (auto) 5.3 (1.5-7.7) 10^3/ul Absolute Lymphs (auto) 2.0 (1.0-4.8) 10^3/ul Absolute Monos (auto) 0.6 (0-0.8) 10^3/ul Absolute Eos (auto) 0.2 (0-0.6) 10^3/ul Absolute Basos (auto) 0.1 (0-0.2) 10^3/ul Absolute Nucleated RBC 0 10^3/ul Nucleated RBC % 0 INR (Anticoag Therapy) 0.79 (0.77-1.02) APTT 33.8 (26.0-36.3) seconds Sodium 138 (135-145) mmol/L Potassium 4.3 (3.5-5.0) mmol/L Chloride 106 (101-111) mmol/L Carbon Dioxide 25 (22-32) mmol/L Anion Gap 7 (2-11) mmol/L BUN 15 (6-24) mg/dL Creatinine 0.84 (0.67-1.17) mg/dL Est GFR ( Amer) 138.9 (>60) Est GFR (Non-Af Amer) 108.0 (>60) BUN/Creatinine Ratio 17.9 (8-20) Glucose 83 (70-100) mg/dL Calcium 9.4 (8.6-10.3) mg/dL Result Diagrams: 10/04/17 14:27 18 14:27 Lab Statement: Any lab studies that have been ordered have been reviewed, and results considered in the medical decision making process. Re-Evaluation - Re-Evaluation First Eval Re-Evaluation Time: 04:11 Change: Improved Comment: Patient is feeling much better and is now walking around. Ready for discharge. Headache Course/Dx - Course Course Of Treatment: Patient is one-day post lumbar puncture for myelogram. He is having positional headache consistent with spinal headache. Anesthesia was contacted and came to evaluate the patient. They do not feel a blood patch is warranted at this early stage. He was treated here with standard treatment for headache with near-complete relief. He understands he should return for blood patch if the positional nature to his headache continues. Promethazine prescribed for outpatient use. - Diagnoses Differential Diagnosis/HQI/PQRI: Other - Migraine headache, spinal headache, subarachnoid Provider Diagnoses: Lumbar puncture headache - Physician Notifications Discussed Care Of Patient With: Mahesh Gonzalez Time Discussed With Above Provider: 02:27 Instructed by Provider To: MD Will See In ED - Anesthesia will explain to pt why they are not doing a spinal tap Discharge - Sign-Out/Discharge Documenting (check all that apply): Discharge/Admit/Transfer - Discharge - Discharge Plan Condition: Good Disposition: HOME Prescriptions: Promethazine TAB* [Phenergan Tab*] 25 mg PO Q6H PRN #20 tab PRN Reason: headache/nausea Patient Education Materials: Acute Headache (ED), Epidural Blood Patch (DC) Referrals: No Primary Care Phys,NOPCP [Primary Care Provider] - Additional Instructions: Return to the ER if you're not better in 24 hours and have a headache that is positional in nature as discussed. Return with vomiting, severe headache, worse or new symptoms. Drink plenty of fluids, caffeine may help. Ibuprofen and Benadryl along with prescribed medication may help too. - Billing Disposition and Condition Condition: STABLE Disposition: Home The documentation as recorded by the Juan R ihnson Jade accurately reflects the service I personally performed and the decisions made by me, Gagandeep Moore MD.
== END 2017-10-04 16:39 | disposition home or self-care (01) ==
LOC: ED 13:01
DX: N20.0 Calculus of kidney (principal); R06.02 Shortness of breath; R10.9 Unspecified abdominal pain; M54.9 Dorsalgia, unspecified
CPT/HCPCS: 36415; 80048; 85025; 85610; 85730; 99283; J1200; J1885; J2765

== ENCOUNTER 2017-10-05 11:52 | Emergency (ER) | payer OTHER ==
[2017-10-05] MEDS ORDERED: NS 0.9% 1000 ML* 1,000 ML IV ONE (16:06)
[2017-10-05] MEDS ORDERED: diPHENhydraMINE IV* 50 MG/ML 1 ml VIAL (BENADRYL) IV ONE (16:41)
[2017-10-05] MEDS ORDERED: Ketorolac INJ* 30 MG/ML 1 ML VIAL IV PUSH ONE (16:41)
[2017-10-05] MEDS ORDERED: Metoclopramide IV* 5 MG/ML 2 ML VIAL IV ONE (16:41)
[2017-10-05 17:44] LABS: ABS Basophils 0.1 10^3/ul (0-0.2); ABS Eosinophils 0.1 10^3/ul (0-0.6); ABS Lymphocytes 1.5 10^3/ul (1.0-4.8); ABS Monocytes 0.5 10^3/ul (0-0.8); ABS Neutrophils 4.5 10^3/ul (1.5-7.7); ABS Nucleated RBC 0 10^3/ul; Eosinophil % 1.2 % (0-6); Hematocrit 44 % (42-52); Hemoglobin 15.2 g/dl (14.0-18.0); Lymphocyte % 22.8 % (25-47); Mean Corpuscular HGB Conc 34 g/dl (31-36); Mean Corpuscular Hemoglobin 34 pg (27-31); Mean Corpuscular Volume 100 fL (80-94); Mean Platelet Volume 8.4 um3 (7.4-10.4); Nucleated Red Blood Cells % 0; Platelet Count 190 10^3/ul (150-450); Red Blood Count 4.43 10^6/ul (4.00-5.40); Red Cell Distribution Width 13 % (10.5-15); White Blood Count 6.7 10^3/ul (3.5-10.8)
[2017-10-05] MEDS ORDERED: fentaNYL* 50 MCG/ML 2 ML VIAL (100 MCG VIAL) ONE (18:09)
[2017-10-05] MEDS ORDERED: oxyCODONE/Acetamin 5/325 MG* TAB PO PRN (18:27)
[2017-10-05] MEDS ORDERED: Ondansetron INJ* 2 MG/ML VIAL IV PRN (18:27)
[2017-10-05] MEDS ORDERED: Naloxone* 0.4 MG/ML 1 ML VIAL IV PRN (18:27)
[2017-10-05] MEDS ORDERED: HYDROcodone/ACETAMIN 5-325 MG* 1 TAB PO PRN (18:27)
[2017-10-05] MEDS ORDERED: fentaNYL* 50 MCG/ML 2 ML VIAL (100 MCG VIAL) IV PRN (18:27)
--- NOTE | 2017-10-05 18:50 | ED ---
Whitney Bassett Rebecca, scribed for José Miguel Porter MD on 10/05/17 at 1607 . Headache - HPI Summary HPI Summary: Pt is a 27 y/o M who presents to ED c/o ART s/p LP. Pt had an LP done at 1300 on Friday (2 days ago) at [facility] and upon standing up out of the car after returning home at 1800 his ART began. Pain has gradually worsened since onset, resolved yesterday after being seen at [facility], returning upon coming home after. At triage, pain was severe, ranked 9/10. Sx slightly alleviated by rest and laying down. Was seen by [facility] ED yesterday where he was given IV fluids, Toradol, Reglan, and Benadryl which resolved sx, with an Rx for Phenergan. Anesthesiology yesterday felt as though a blood patch was not warranted so early on. Does not typically experiences headaches and has tried caffeine without resolution. - History Of Current Complaint Chief Complaint: EDHeadache Stated Complaint: HEADACHE Time Seen by Provider: 10/05/17 15:57 Hx Obtained From: Patient Onset/Duration: Started days ago - 2 days ago, Still Present Currently Pain Is: Severe - 9/10 Character: Throbbing Aggravating Factor: Nothing Allevating Factors: Rest, Other (Noted In Comments) - Laying down Associated Signs And Symptoms: Negative - Allergies/Home Medications Allergies/Adverse Reactions: Allergies Allergy/AdvReac Type Severity Reaction Status Date / Time No Known Allergies Allergy Verified 10/05/17 12:04 PMH/Surg Hx/FS Hx/Imm Hx Cardiovascular History: Denies: Hx Pacemaker/ICD Musculoskeletal History: Reports: Hx Back Problems - Herniated disc Sensory History: Denies: Hx Contacts or Glasses, Hx Hearing Aid Opthamlomology History: Denies: Hx Contacts or Glasses Psychiatric History: Denies: Hx Panic Disorder - Surgical History Surgery Procedure, Year, and Place: wisdom teeth June 2016 Hx Anesthesia Reactions: No Infectious Disease History: No Infectious Disease History: Reports: Hx of Known/Suspected MRSA - SKIN INFECTION Denies: Traveled Outside the [place] in Last 30 Days - Family History Known Family History: Positive: Diabetes, Other - CA. NEGATIVE: blood clot issues, aneurysm - Social History Alcohol Use: Daily Alcohol Amount: 2-3 beer a day Hx Substance Use: No Substance Use Type: Reports: Prescribed Substance Use Comment - Amount & Last Used: hydrocodone, currently for back pain Hx Tobacco Use: Yes Smoking Status (MU): Light Every Day Tobacco Smoker Type: Cigarettes Amount Used/How Often: 6-10 cigg/day for past 7 years Review of Systems Negative: Fever Positive: Headache All Other Systems Reviewed And Are Negative: Yes Physical Exam - Summary Physical Exam Summary: Appearance: The patient is well-nourished in no acute distress and in no acute pain. Skin: The skin is warm and dry and skin color reflects adequate perfusion. HEENT: The head is normocephalic and atraumatic. The pupils are equal and reactive. The conjunctivae are clear and without drainage. Nares are patent and without drainage. Mouth reveals moist mucous membranes and the throat is without erythema and exudate. The external ears are intact. The ear canals are patent and without drainage. The tympanic membranes are intact. Neck: The neck is supple with full range of motion and non-tender. There are no carotid bruits. There is no neck vein distension. Respiratory: Chest is non-tender. Lungs are clear to auscultation and breath sounds are symmetrical and equal. Cardiovascular: Heart is regular rate and rhythm. There is no murmur or rub auscultated. There is no peripheral edema and pulses are symmetrical and equal. Abdomen: The abdomen is soft and non-tender. There are normal bowel sounds heard in all four quadrants and there is no organomegaly palpated. Musculoskeletal: There is no back tenderness noted. Extremities are non-tender with full range of motion. There is good capillary refill. There is no peripheral edema or calf tenderness elicited. Neurological: Patient is alert and oriented to person, place and time. The patient has symmetrical motor strength in all four extremities. Cranial nerves are grossly intact. Deep tendon reflexes are symmetrical and equal in all four extremities. Psychiatric: The patient has an appropriate affect and does not exhibit any anxiety or depression. Triage Information Reviewed: Yes Vital Signs On Initial Exam: Initial Vitals Temp Pulse Resp BP Pulse Ox 98.3 F 81 18 148/90 100 10/05/17 12:00 10/05/17 12:00 10/05/17 12:00 10/05/17 12:10/05/17 12:00 Vital Signs Reviewed: Yes Diagnostics - Vital Signs Vital Signs Temp Pulse Resp BP Pulse Ox 10/05/17 13:25 98.1 F 66 16 141/90 99 10/05/17 12:00 98.3 F 81 18 148/90 100 - Laboratory Lab Results: Lab Results 10/05/17 Range/Units 17:36 WBC 6.7 (3.5-10.8) 10^3/ul RBC 4.43 (4.00-5.40) 10^6/ul Hgb 15.2 (14.0-18.0) g/dl Hct 44 (42-52) % MCV 100 H (80-94) fL MCH 34 H (27-31) pg MCHC 34 (31-36) g/dl RDW 13 (10.5-15) % Plt Count 190 (150-450) 10^3/ul MPV 8.4 (7.4-10.4) um3 Neut % (Auto) 67.3 (38-83) % Lymph % (Auto) 22.8 L (25-47) % [place] % (Auto) 7.8 H (0-7) % Eos % (Auto) 1.2 (0-6) % Baso % (Auto) 0.9 (0-2) % Absolute Neuts (auto) 4.5 (1.5-7.7) 10^3/ul Absolute Lymphs (auto) 1.5 (1.0-4.8) 10^3/ul Absolute Monos (auto) 0.5 (0-0.8) 10^3/ul Absolute Eos (auto) 0.1 (0-0.6) 10^3/ul Absolute Basos (auto) 0.1 (0-0.2) 10^3/ul Absolute Nucleated RBC 0 10^3/ul Nucleated RBC % 0 Result Diagrams: 10/05/17 17:36 Lab Statement: Any lab studies that have been ordered have been reviewed, and results considered in the medical decision making process. Headache Course/Dx - Course Course Of Treatment: Mr. Bey presented with a good story for a post-LP headache. He had tried caffeine at home he had complete improvement yesterday with a migraine cocktail and fluids but the headache returned when he got home. The headache is worsened when he is upright and initially was only present when he was upright. Now it is present constantly but worsened when upright. Dr. Nicole was contacted to consider a blood patch after an IV had been established and he was given another migraine cocktail and IV fluids. Dr. Nicole came to the department and took him to outpatient surgery department to perform a blood patch. - Diagnoses Provider Diagnoses: Headache after spinal puncture - Physician Notifications Discussed Care Of Patient With: Melissa Nicole Time Discussed With Above Provider: 17:20 Instructed by Provider To: Other - Will do the blood patch in the OR. Discharge - Sign-Out/Discharge Documenting (check all that apply): Discharge/Admit/Transfer - Discharge Plan Condition: Stable Disposition: HOME Referrals: No Primary Care Phys,NOPCP [Primary Care Provider] - - Billing Disposition and Condition Condition: STABLE Disposition: Home The documentation as recorded by the Whitney hinson Rebecca accurately reflects the service I personally performed and the decisions made by me, José Miguel Porter MD.
[2017-10-05 20:01] VITALS: BP 138/94
== END 2017-10-05 18:25 | disposition home or self-care (01) ==
LOC: ED 11:52
DX: G97.1 Other reaction to spinal and lumbar puncture (principal); Y84.4 Aspiration of fluid as the cause of abnormal reaction of the patient, or of later complication, without mention of misadventure at the time of the procedure; F17.210 Nicotine dependence, cigarettes, uncomplicated
CPT/HCPCS: 36415; 85025; 96374; 96375; 99284; J1200; J1885; J2765; J3010

== ENCOUNTER 2019-01-15 13:10 | Emergency (ER) | payer OTHER ==
[2019-01-15] MEDS ORDERED: HYDROcodone/ACETAMIN 5-325 MG* 1 TAB PO ONE (13:32)
[2019-01-15] MEDS ORDERED: Ketorolac *IM* INJ* 60 MG/2 ML VIAL IM ONE (13:32)
[2019-01-15] MEDS ORDERED: Cyclobenzaprine TAB* 10 MG PO ONE (13:32)
--- NOTE | 2019-01-15 14:37 | ED ---
Neck Pain - HPI Summary HPI Summary: This patient is a 1-year-old male presenting to the ED with left-sided neck pain. Patient states he was attempting to catch something at work, turned his head violently to the right is now having pain to the left side. On arrival to the ED, his neck is rotated to the R and is denying any pain to the posterior cervical spine. He has never injured the neck in the past. He states he did not take any medication prior to arrival. Pain was instant, rated 10/10, aching and burning. Denies any radiation of pain into the scapula clavicular area were shoulder. Patient has good range of motion to the bilateral arms. Symptoms are worse with attempted movement, better with rest. He is also not used heat or ice prior to arrival. - History of Current Complaint Chief Complaint: EDNeckComplaint Stated Complaint: NECK PAIN PER PT Time Seen by Provider: 01/15/19 13:24 Hx Obtained From: Patient Timing: Constant Onset/Duration: Sudden Onset Severity Initially: Severe Severity Currently: Severe Pain Intensity: 9 Pain Scale Used: 0-10 Numeric Location: Discrete At: - left sided neck pain Character: Aching Aggravating Factors: Nothing Alleviating Factors: Nothing Associated Signs & Symptoms: Positive: Negative - Risk Factors Meningitis Risk Factors: Negative - Allergies/Home Medications Allergies/Adverse Reactions: Allergies Allergy/AdvReac Type Severity Reaction Status Date / Time No Known Allergies Allergy Verified 01/15/19 13:15 PMH/Surg Hx/FS Hx/Imm Hx Previously Healthy: Yes Cardiovascular History: Denies: Hx Pacemaker/ICD Musculoskeletal History: Reports: Hx Back Problems - Herniated disc Sensory History: Denies: Hx Contacts or Glasses, Hx Hearing Aid Opthamlomology History: Denies: Hx Contacts or Glasses Psychiatric History: Denies: Hx Panic Disorder - Surgical History Surgery Procedure, Year, and Place: wisdom teeth June 2016 Hx Anesthesia Reactions: No - Immunization History Hx Pertussis Vaccination: No Immunizations Up to Date: Yes Infectious Disease History: Yes Infectious Disease History: Reports: Hx of Known/Suspected MRSA - SKIN INFECTION Denies: Traveled Outside the [place] in Last 30 Days - Family History Known Family History: Positive: Diabetes, Other - CA. NEGATIVE: blood clot issues, aneurysm - Social History Occupation: Employed Full-time Lives: With Family Alcohol Use: Weekly Alcohol Amount: 2-3 beer a day Hx Substance Use: No Substance Use Type: Reports: None Substance Use Comment - Amount & Last Used: hydrocodone, currently for back pain Hx Tobacco Use: Yes Smoking Status (MU): Light Every Day Tobacco Smoker Type: Cigarettes Amount Used/How Often: 6-10 cigg/day for past 7 years Review of Systems Negative: Fever, Chills, Fatigue, Skin Diaphoresis Negative: Palpitations, Chest Pain Negative: Shortness Of Breath, Cough Genitourinary: Negative Positive: no symptoms reported, see HPI Positive: Arthralgia - left sided neck pain, Myalgia Skin: Negative Neurological: Negative All Other Systems Reviewed And Are Negative: Yes Physical Exam Triage Information Reviewed: Yes Vital Signs On Initial Exam: Initial Vitals Temp Pulse Resp BP Pulse Ox 99 F 87 16 171/104 99 01/15/19 13:13 01/15/19 13:13 01/15/19 13:13 01/15/19 13:13 01/15/19 13:13 Vital Signs Reviewed: Yes Appearance: Positive: Well-Appearing, Well-Nourished Skin: Positive: Warm, Skin Color Reflects Adequate Perfusion Head/Face: Positive: Normal Head/Face Inspection Eyes: Positive: EOMI, Conjunctiva Clear Neck: Positive: Supple, No Lymphadenopathy Respiratory/Lung Sounds: Positive: Clear to Auscultation, Breath Sounds Present Cardiovascular: Positive: RRR, Pulses are Symmetrical in both Upper and Lower Extremities Musculoskeletal: Positive: Pain @ - left sided neck pain Neurological: Positive: Sensory/Motor Intact, Speech Normal, Other - no numbness /tingling AVPU Assessment: Alert Diagnostics - Vital Signs Vital Signs Temp Pulse Resp BP Pulse Ox 01/15/19 13:13 99 F 87 16 171/104 99 - Laboratory Lab Statement: Any lab studies that have been ordered have been reviewed, and results considered in the medical decision making process. Neck Course/Dx - Course Course Of Treatment: Patient's evaluated for left-sided neck injury. On physical examination, patient has neck rotated to the right side, endorsing pain to the left side of the neck. He denies any pain to the posterior cervical spine. There is no pain and tenderness to the posterior cervical spine , scapular region, shoulders or clavicles. He does have tenderness to the sternocleidomastoid without evidence of deformity. Appears to be torticollis. Patient is given Flexeril, Toradol and oxycodone. Pending improvement, patient is signed out to Jayne Tate PA-C. - Diagnoses Provider Diagnoses: Torticollis Discharge ED - Sign-Out/Discharge Documenting (check all that apply): Sign-Out Patient Signing out patient TO: Mirian Tate Patient Received Moderate/Deep Sedation with Procedure: No - Discharge Plan Condition: Good Disposition: HOME Prescriptions: Cyclobenzaprine TAB* [Flexeril 10 MG TAB*] 10 mg PO TID PRN #21 tab PRN Reason: Pain - Moderate Patient Education Materials: Spasmodic Torticollis (ED) Referrals: [facility] PHYSICIAN REFERRAL [Outside] Additional Instructions: Take muscle relaxers three times a day Use ibuprofen or Tylenol for pain every 6 hours ice/heat area, move as much as possible establish care with primary Return to ED if develop any new or worsening symptoms - Billing Disposition and Condition Condition: GOOD Disposition: Home
--- NOTE | 2019-01-15 15:34 | ED ---
Progress - Progress Note Progress Note: Patient signed out by Betsy PALACIOS pending reevaluation. Reevaluation at 1530. Patient states that has more range of motion than previous and is feeling better. We'll send home with muscle relaxer. Course/Dx - Course Course Of Treatment: 28-year-old male presents with neck pain today after an injury at work. He states he had limited range of motion neck. No midline tenderness. Was given Toradol Flexeril and oxycodone and is feeling better. States range of motion is returning. Will discharge with muscle relaxer. Told to establish care with primary. Patient understands and agrees the plan. - Diagnoses Provider Diagnoses: Torticollis Discharge ED - Sign-Out/Discharge Documenting (check all that apply): Patient Departure, Receiving Sign-Out Receiving patient FROM: Betsy Severino Patient Received Moderate/Deep Sedation with Procedure: No - Discharge Plan Condition: Good Disposition: HOME Prescriptions: Cyclobenzaprine TAB* [Flexeril 10 MG TAB*] 10 mg PO TID PRN #21 tab PRN Reason: Pain - Moderate Patient Education Materials: Spasmodic Torticollis (ED) Referrals: [facility] [place] [facility]IAN REFERRAL [Outside] Additional Instructions: Take muscle relaxers three times a day Use ibuprofen or Tylenol for pain every 6 hours ice/heat area, move as much as possible establish care with primary Return to ED if develop any new or worsening symptoms - Billing Disposition and Condition Condition: GOOD Disposition: Home
[2019-01-15 15:36] VITALS: BP 145/95
== END 2019-01-15 15:38 | disposition home or self-care (01) ==
LOC: ED 13:10
DX: M43.6 Torticollis (principal); F17.210 Nicotine dependence, cigarettes, uncomplicated
CPT/HCPCS: 96372; 99282; A9270-GY; J1885